=== PATIENT | female | born 1980 | race Caucasian/White ===

== ENCOUNTER 2017-11-04 10:42 | Emergency (ER) | payer BC ==
[2017-11-04 10:49] VITALS: BP 140/62
[2017-11-04] MEDS ORDERED: Famotidine 20 MG/2 ML SDV IVPUSH ONE (11:04)
[2017-11-04] MEDS ORDERED: Ondansetron 4 MG/2 ML SDV IVPUSH ONE (11:04)
[2017-11-04] MEDS ORDERED: Sodium Chloride 0.9% 10 ML Syringe FLUSH PRN (11:04)
[2017-11-04] MEDS ORDERED: Lactated Ringers 1,000 ML IV ONE (11:04)
[2017-11-04] MEDS ORDERED: Pantoprazole 40 MG Vial IVPUSH ONE (11:04)
--- NOTE | 2017-11-04 11:04 | EDM.PDOC ---
ED HPI GENERAL MEDICAL PROBLEM - General Chief Complaint: Abdominal Pain Stated Complaint: abdominal pain Time Seen by Provider: 11/04/17 10:50 Source of Information: Reports: Patient, Family (Mother, sister), Old Records ( [facility] chart/EMR) History Limitations: Reports: No Limitations - History of Present Illness INITIAL COMMENTS - FREE TEXT/NARRATIVE: The patient was brought to the emergency room via private automobile by her mother for evaluation of 06/17 diffuse abdominal pain, which suddenly started at work at about 10 AM this morning. Patient's last normal bowel movement was about 5 days ago with patient having about 6-7 loose stools per day during the last few days. She denies any known exposure to infection, food poisoning, etc. She has not taken any medications for the above symptoms to this point. The patient does have a history of recurrent urolithiasis as below, however does not feel that the symptoms are any way related to urolithiasis with no recent history of colic, gross hematuria, etc with only mild nausea since the above onset of symptoms this morning. Her LMP 2 weeks ago was normal. No recent history of abdominal pain, heartburn, melena, gross hematochezia, or any food intolerance, including fatty foods, etc.. The patient denies any chest pain/ pressure, heart flutter, dizziness, orthostasis, orthopnea, diaphoresis, paresthesias, recent decreased exercise tolerance, or any other anginal-type symptoms. The patient also denies any recent fever, cough, wheezing, dyspnea, etc., although she has had a mild sore throat during the last few days with this resolved at this time.. Onset: Today, Sudden Onset Date: 11/04/17 Onset Time: 10:00 Duration: Constant Location: Reports: Abdomen. Denies: Head, Face, Neck, Back, Pelvis, Upper Extremity, Left, Upper Extremity, Right, Radiates to Quality: Reports: Sharp. Denies: Same as Previous Episode Severity: Severe Improves with: Reports: None Worsens with: Reports: None Context: Reports: Other (As above) Associated Symptoms: Reports: Nausea/Vomiting (No emesis). 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 Denies: Allergic Rhinitis, Cataract, Glaucoma, Hard of Hearing, Impaired Vision, Macular Degeneration, Retinal Detachment Cardiovascular History: Reports: None. Denies: Afib, Aneurysm, Arrhythmia, Blood Clots/VTE/DVT, CAD, Heart Murmur, High Cholesterol, Hypertension, [place], PVD , Syncope Respiratory History: Reports: Intubation, Previous. Denies: Asthma, Bronchitis , Recurrent, COPD, PE, Pneumothorax, Sleep Apnea, TB Gastrointestinal History: Reports: Cholelithiasis, Other (See Below). Denies: Bowel Obstruction, Celiac Disease, Chronic Constipation, Chronic Diarrhea, Colon Polyp, Fecal Incontinence, Gastritis, GERD, GI Bleed, Hepatitis, Inflammatory Bowel Disease, Irritable Bowel Syndrome, Jaundice, Pancreatitis, PUD Other Gastrointestinal History: gallbladder polyp with concomitant cholelithiasis requiring surgery as below. Possible history of colitis in about 2014 with no workup to this point Genitourinary History: Reports: Renal Calculus, Other (See Below). 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 Denies: Ectopic , Endometriosis, Fibroids : 3 Para: 2 LMP (Approximate): 2 Weeks Other OB/BYN History: Note SAB of twins of possible different gestational ages- ? by ultrasound during first trimester in October 2009 with no procedures required. Otherwise, Full term without complications during pregnancies or deliveries. Fibrocystic breast disease Musculoskeletal History: Reports: Fracture, Other (See Below). Denies: Amputation, Arthritis, Back Pain, Chronic, Gout, Neck Pain, Chronic, Osteoarthritis, RA, SLE Other Musculoskeletal History: Left foot in 2009 Neurological History: Reports: None. Denies: Cerebral Aneurysms, Concussion, CVA, Headaches, Chronic, Head Trauma, Migraines, MS, Neuropathy, Peripheral, Parkinson's, Seizure, TIA Psychiatric History: Reports: None. Denies: Abuse, Victim of, ADD, ADHD, Addiction, Anxiety, Depression, Psych Hospitalization(s), PTSD, Suicide Attempt , Suicidal Ideation Endocrine/Metabolic History: Reports: Hypothyroidism, Obesity/BMI 30+. Denies: Diabetes, Gestational, Diabetes, Type I, Diabetes, Type II, Diabetes Mellitus, Type 3c, Osteopenia, Osteoporosis Hematologic History: Reports: None. Denies: Anemia, Blood Transfusion(s), Iron Deficiency Immunologic History: Reports: None. Denies: AIDS, HIV, SLE Oncologic (Cancer) History: Denies: Basal Cell Carcinoma, Cervix, Hodgkin's Lymphoma, Leukemia, Lymphoma, Malignant Melanoma, Non-Hodgkin's Lymphoma, Squamous Cell Carcinoma Dermatologic History: Reports: None. Denies: Eczema, Psoriasis - Infectious Disease History Infectious Disease History: Reports: Chicken Pox. Denies: C-Difficile, Measles , Meningitis, Mononucleosis, MRSA, Mumps, Pertussis (Whooping Cough), Rheumatic Fever, Rubella, Scarlet Fever, Shingles, VRE - Past Surgical History Head Surgeries/Procedures: Reports: None HEENT Surgical History: Reports: Oral Surgery, Other (See Below). Denies: Adenoidectomy, Cataract Surgery, Eye Surgery, Laser Surgery, LASIK, Myringotomy w Tube(s), Naso-Sinus Surgery, Tonsillectomy Other HEENT Surgeries/Procedures: [place] teeth extraction 4 at age 16. Tonsillectomy at age 31 Cardiovascular Surgical History: Reports: None. Denies: Varicose, Vascular Surgery Respiratory Surgical History: Reports: None. Denies: Thoracentesis GI Surgical History: Reports: Cholecystectomy, Other (See Below). Denies: Appendectomy, Colonoscopy, EGD, Hernia, Abdominal, Hernia, Inguinal, Hernia Repair/Other, Polypectomy Other GI Surgeries/Procedures: Laparoscopic cholecystectomy in January 2013 Female Surgical History: Reports: D&C, Other (See Below). Denies: Breast Biopsy, Tubal Ligation Other Female Surgeries/Procedures: D&C in June 2002 secondary to retained placenta Endocrine Surgical History: Reports: None. Denies: Thyroid Biopsy Neurological Surgical History: Reports: None. Denies: C-Spine, Discectomy, Laminectomy, Lumbar Spine, Sacral Spine, Scoliosis, Spinal Fusion, Vertebroplasty Musculoskeletal Surgical History: Reports: None. Denies: Arthroscopic Procedure , Carpal Tunnel, Ganglion Cyst, Joint Replacement, ORIF, Shoulder Surgery Oncologic Surgical History: Reports: None Dermatological Surgical History: Reports: Skin Biopsy, Other (See Below) Other Dermatological Surgeries/Procedures: Excision of benign cyst from the nuchal region at age 1 - Past Imaging History Past Imaging History: Reports: CAT Scan (CT scan of the abdomen and pelvis on ), Mammogram (Last mammogram on 01/06/17), Ultrasound (Right breast ultrasound on 01/06/17. Bilateral breast ultrasounds on 03/16/15. Right upper quadrant abdominal ultrasound on 11/14/12. Multiple previous OB ultrasounds.) Social & Family History - Family History Cardiac: Reports: CAD, High Cholesterol, Hypertension, [place], Other (See Below). Denies: Afib, Aneurysm, Arrhythmia, Blood Clots/VTE/DVT, Bypass, Heart Failure, PVD/COD, Stent, Syncope Other Cardiac Family History: Paternal grandfather with fatal [place] in his 80s. Maternal grandfather with fatal [place] in his 70s. Hypertension and hyperlipidemia in father GI: Reports: None. Denies: Celiac Disease, Cholelithiasis, Colon Polyps, GERD, GI bleed, Inflammatory Bowel Disease, Irritable Bowel Syndrome, PUD Endocrine/Metabolic: Reports: Hypothyroidism, Other (See Below). Denies: Diabetes, Type I, Diabetes, type II, Diabetes Mellitus, Type 3c Other Endocrine/Metabolic Family History: Sister and mother with hypothyroidism - Tobacco Use Smoking Status *Q: Never Smoker Smoking Cessation Information Provided To Patient: No Second Hand Smoke Exposure: No Second Hand Smoke Education Provided: No - Caffeine Use Caffeine Use: Reports: Soda (2 sodas per week), Tea (1 cup per day). Denies: Coffee, Energy Drinks - Alcohol Use Alcohol Use History: No Days Per Week of Alcohol Use: 0 (No previous DWIs, problems with alcohol abuse, etc.) Number of Drinks Per Day: 1 (Usually wine for special occasions only) Total Drinks Per Week: 0 Alcohol Use in Last Twelve Months: Yes Alcohol Use Frequency: Socially - Recreational Drug Use Recreational Drug Use: No Drug Use in Last 12 Months: No Recreational Drug Type: Denies: Amphetamines (Speed), Cocaine, Heroin, Inhalants (Glues, Solvents, Aerosols), LSD (Acid), Marijuana/Hashish, Methamphetamine, Morphine, Oxycodone - Living Situation & Occupation Living situation: Reports: (1999. 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 ED EXAM, GI/ABD - Physical Exam Exam: See Below Exam Limited By: No Limitations General Appearance: Alert, WD/WN, Mild Distress (Secondary to abdominal pain). No: Anxious Eyes: Bilateral: Normal Appearance (No nystagmus), EOMI (PERRLA) Ears: Normal External Exam, Normal Canal, Hearing Grossly Normal, Normal TMs Nose: Normal Inspection, Normal Mucosa, No Blood Throat/Mouth: Normal Inspection, Normal Lips, Normal Teeth, Normal Gums, Normal Voice, No Airway Compromise. No: Normal Oropharynx (Trace erythema in the posterior pharynx. Tonsils absent), Dysphagia, Perioral Cyanosis Head: Atraumatic, Normocephalic. No: Facial Swelling, Facial Tenderness, Sinus Tenderness Neck: Normal Inspection, Supple, Non-Tender, Full Range of Motion. No: Carotid Bruit, Lymphadenopathy (L), Lymphadenopathy (R), Thyromegaly Respiratory/Chest: No Respiratory Distress, Lungs Clear, Normal Breath Sounds, No Accessory Muscle Use, Chest Non-Tender. No: Pleural Rub, Retractions Cardiovascular: Normal Peripheral Pulses, Regular Rate, Rhythm, No Edema, No Gallop, No JVD, No Murmur, No Rub. No: Gallop/S3, Gallop/S4, Friction Rub GI/Abdominal Exam: Normal Bowel Sounds, No Organomegaly, No Distention, No Abnormal Bruit, No Mass, Pelvis Stable, Rebound (Borderline), Tender (Moderate diffuse particularly in right lower quadrant), Other (obese). No: Guarding (Female) Exam: Deferred Rectal (Female) Exam: Normal Exam, Normal Rectal Tone, Heme - Stool. No: Fecal Impaction, Hemorrhoids, Mass, Rectal Fissure, Tenderness (No Conrad space tenderness) Back Exam: Normal Inspection, Full Range of Motion. No: CVA Tenderness (L), CVA Tenderness (R), Muscle Spasm Extremities: Normal Inspection, Normal Range of Motion, Non-Tender, No Pedal Edema, Normal Capillary Refill. No: Audi's Sign Neurological: Alert, Oriented, CN II-XII Intact, Normal Cognition, Normal Gait, Normal Reflexes (Negative Babinski's), No Motor/Sensory Deficits Psychiatric: Normal Affect, Normal Mood Skin Exam: Warm, Dry, Intact, Normal Color, No Rash, Stud(s) (Multiple in the auricular regions bilaterally). No: Diaphoretic, Ecchymosis, Jaundice, Petechiae, Rash, Wound/Incision Lymphatic: No Adenopathy Course - Vital Signs Last Recorded V/S: Last Vital Signs Temp 36.6 C 11/04/17 10:42 Pulse 88 11/04/17 10:42 Resp 20 11/04/17 10:42 BP 140/62 11/04/17 10:42 Pulse Ox 100 11/04/17 10:42 Vital Signs - 24 hr 11/04/17 10:42 Temperature [ 36.6 C Temporal] Pulse, 88 Peripheral [ Right Pulse Oximetry] Respiratory 20 Rate Blood Pressure 140/62 [Right Upper Arm] O2 Sat by Pulse 100 Oximetry - Orders/Labs/Meds Orders: Active Orders 24 hr Category Date Time Status Peripheral IV Care [RC] . DIRECTED Care 11/04/17 11:05 Active Abdomen Pelvis w Cont [CT] Stat Exams 11/04/17 11:04 Taken CULTURE BLOOD [BC] Stat Lab 11/04/17 11:15 Received CULTURE BLOOD [BC] Stat Lab 11/04/17 11:20 Received CULTURE STREP A CONFIRMATION [RM] Stat Lab 11/04/17 11:10 Results CULTURE URINE [] Stat Lab 11/04/17 11:04 Ordered H PYLORI STOOL ANTIGEN [MREF] Urgent Lab 11/04/17 11:04 Ordered STREP SCRN A RAPID W CULT CONF [] Stat Lab 11/04/17 11:10 Results Blood Culture x2 Reflex Set [OM.PC] Urgent Oth 11/04/17 11:04 Ordered Obtain Past Medical Record [OM.PC] Urgent Oth 11/04/17 11:04 Active Peripheral IV Insertion Adult [OM.PC] Stat Oth 11/04/17 11:04 Ordered Resuscitation Status Stat Resus Stat 11/04/17 11:04 Ordered Labs: Laboratory Tests 11/04/17 11/04/17 11/04/17 Range/Units 11:11 11:15 11:15 WBC 6.8 (4.0-10.2) K/uL RBC 4.60 (3.77-5.09) M/uL Hgb 14.4 (11.7-15.5) g/dL Hct 41.0 (34.0-46.0) % MCV 89.1 (84.0-98.0) fL MCH 31.3 (28.2-33.3) pg MCHC 35.1 (31.7-36.0) g/dL RDW 12.2 (11.2-14.1) % Plt Count 199 (150-350) K/uL Neut % (Auto) 64.0 (45.0-80.0) % Lymph % (Auto) 26.0 (10.0-50.0) % [place] % (Auto) 9.3 (2.0-14.0) % Eos % (Auto) 0.7 (0.0-5.0) % Baso % (Auto) 0.0 (0.0-2.0) % Neut # (Auto) 4.35 (1.40-7.00) K/uL Lymph # (Auto) 1.77 (0.50-3.50) K/uL [place] # (Auto) 0.63 (0.00-1.00) K/uL Eos # (Auto) 0.05 (0.00-0.50) K/uL Baso # (Auto) 0.00 (0.00-0.20) K/uL PT (9.8-11.7) SEC INR APTT (22.1-29.8) SEC Sodium (136-145) mmol/L Potassium (3.5-5.1) mmol/L Chloride (98-107) mmol/L Carbon Dioxide (21.0-32.0) mmol/L BUN (7-18) mg/dL Creatinine (0.51-1.17) mg/dL Est Cr Clr Drug Dosing mL/min Estimated GFR (MDRD) mL/min Glucose (74-106) mg/dL Lactic Acid (0.4-2.0) mmol/L Uric Acid (2.6-7.2) mg/dL Calcium (8.5-10.1) mg/dL Magnesium (1.8-2.4) mg/dL Total Bilirubin (0.2-1.0) mg/dL AST (15-37) U/L ALT (12-78) U/L Alkaline Phosphatase (46-116) IU/L Total Protein (6.4-8.2) g/dL Albumin (3.4-5.0) g/dL Amylase 34 (25-115) U/L Lipase (73-393) U/L HCG, Qual Negative (NEGATIVE) Specimen Type Urine Color Urine Appearance Urine pH (5.0-9.0) Ur Specific [place] (1.005-1.030) Urine Protein (NEGATIVE) mg/dL Urine Glucose (UA) (NEGATIVE) mg/dL Urine Ketones (NEGATIVE) mg/dL Urine Occult Blood (NEGATIVE) Urine Nitrite (NEGATIVE) Urine Bilirubin (NEGATIVE) Urine Urobilinogen (0.2-1.0) E.U./dL Ur Leukocyte Esterase (NEGATIVE) Urine RBC /HPF Urine WBC /HPF Ur Epithelial Cells /LPF Urine Bacteria (NONE TO FEW) /HPF Urine Mucus (NEGATIVE) /LPF 11/04/17 11/04/17 11/04/17 Range/Units 11:15 11:15 11:15 WBC (4.0-10.2) K/uL RBC (3.77-5.09) M/uL Hgb (11.7-15.5) g/dL Hct (34.0-46.0) % MCV (84.0-98.0) fL MCH (28.2-33.3) pg MCHC (31.7-36.0) g/dL RDW (11.2-14.1) % Plt Count (150-350) K/uL Neut % (Auto) (45.0-80.0) % Lymph % (Auto) (10.0-50.0) % [place] % (Auto) (2.0-14.0) % Eos % (Auto) (0.0-5.0) % Baso % (Auto) (0.0-2.0) % Neut # (Auto) (1.40-7.00) K/uL Lymph # (Auto) (0.50-3.50) K/uL [place] # (Auto) (0.00-1.00) K/uL Eos # (Auto) (0.00-0.50) K/uL Baso # (Auto) (0.00-0.20) K/uL PT 10.5 (9.8-11.7) SEC INR 1.0 APTT 25.0 (22.1-29.8) SEC Sodium 139 (136-145) mmol/L Potassium 3.5 (3.5-5.1) mmol/L Chloride 103 (98-107) mmol/L Carbon Dioxide 25.0 (21.0-32.0) mmol/L BUN 9 (7-18) mg/dL Creatinine 0.76 (0.51-1.17) mg/dL Est Cr Clr Drug Dosing 90.31 mL/min Estimated GFR (MDRD) > 60 mL/min Glucose 91 (74-106) mg/dL Lactic Acid 1.1 (0.4-2.0) mmol/L Uric Acid 4.6 (2.6-7.2) mg/dL Calcium 9.3 (8.5-10.1) mg/dL Magnesium 1.9 (1.8-2.4) mg/dL Total Bilirubin 0.5 (0.2-1.0) mg/dL AST 14 L (15-37) U/L ALT 24 (12-78) U/L Alkaline Phosphatase 103 (46-116) IU/L Total Protein 7.5 (6.4-8.2) g/dL Albumin 4.0 (3.4-5.0) g/dL Amylase (25-115) U/L Lipase 96 (73-393) U/L HCG, Qual (NEGATIVE) Specimen Type Urine Color Urine Appearance Urine pH (5.0-9.0) Ur Specific [place] (1.005-1.030) Urine Protein (NEGATIVE) mg/dL Urine Glucose (UA) (NEGATIVE) mg/dL Urine Ketones (NEGATIVE) mg/dL Urine Occult Blood (NEGATIVE) Urine Nitrite (NEGATIVE) Urine Bilirubin (NEGATIVE) Urine Urobilinogen (0.2-1.0) E.U./dL Ur Leukocyte Esterase (NEGATIVE) Urine RBC /HPF Urine WBC /HPF Ur Epithelial Cells /LPF Urine Bacteria (NONE TO FEW) /HPF Urine Mucus (NEGATIVE) /LPF 11/04/17 Range/Units 12:35 WBC (4.0-10.2) K/uL RBC (3.77-5.09) M/uL Hgb (11.7-15.5) g/dL Hct (34.0-46.0) % MCV (84.0-98.0) fL MCH (28.2-33.3) pg MCHC (31.7-36.0) g/dL RDW (11.2-14.1) % Plt Count (150-350) K/uL Neut % (Auto) (45.0-80.0) % Lymph % (Auto) (10.0-50.0) % [place] % (Auto) (2.0-14.0) % Eos % (Auto) (0.0-5.0) % Baso % (Auto) (0.0-2.0) % Neut # (Auto) (1.40-7.00) K/uL Lymph # (Auto) (0.50-3.50) K/uL [place] # (Auto) (0.00-1.00) K/uL Eos # (Auto) (0.00-0.50) K/uL Baso # (Auto) (0.00-0.20) K/uL PT (9.8-11.7) SEC INR APTT (22.1-29.8) SEC Sodium (136-145) mmol/L Potassium (3.5-5.1) mmol/L Chloride (98-107) mmol/L Carbon Dioxide (21.0-32.0) mmol/L BUN (7-18) mg/dL Creatinine (0.51-1.17) mg/dL Est Cr Clr Drug Dosing mL/min Estimated GFR (MDRD) mL/min Glucose (74-106) mg/dL Lactic Acid (0.4-2.0) mmol/L Uric Acid (2.6-7.2) mg/dL Calcium (8.5-10.1) mg/dL Magnesium (1.8-2.4) mg/dL Total Bilirubin (0.2-1.0) mg/dL AST (15-37) U/L ALT (12-78) U/L Alkaline Phosphatase (46-116) IU/L Total Protein (6.4-8.2) g/dL Albumin (3.4-5.0) g/dL Amylase (25-115) U/L Lipase (73-393) U/L HCG, Qual (NEGATIVE) Specimen Type Urincc Urine Color Yellow Urine Appearance Clear Urine pH 6.0 (5.0-9.0) Ur Specific [place] 1.025 (1.005-1.030) Urine Protein Negative (NEGATIVE) mg/dL Urine Glucose (UA) Negative (NEGATIVE) mg/dL Urine Ketones 40 H (NEGATIVE) mg/dL Urine Occult Blood Negative (NEGATIVE) Urine Nitrite Negative (NEGATIVE) Urine Bilirubin Negative (NEGATIVE) Urine Urobilinogen 0.2 (0.2-1.0) E.U./dL Ur Leukocyte Esterase Negative (NEGATIVE) Urine RBC Not seen /HPF Urine WBC 0-5 /HPF Ur Epithelial Cells Few /LPF Urine Bacteria Moderate H (NONE TO FEW) /HPF Urine Mucus Few H (NEGATIVE) /LPF Blood cultures 2 collected Urine set up for culture and sensitivity Microbiology 11/04/17 11:34 Stool Occult Blood (ABDIRIZAK) - Final Stool / Feces NEGATIVE OCCULT BLOOD 11/04/17 11:10 Group A Streptococcus Rapid Screen - Final Throat NEGATIVE STREP A SCREEN Meds: Medications Discontinued Medications Generic Name Dose Route Start Last Admin Trade Name Freq PRN Reason Stop Dose Admin Famotidine 40 mg 11/04/17 11:04 11/04/17 11:12 Pepcid IVPUSH 11/04/17 11:05 40 mg ONETIME ONE Administration Fentanyl 100 mcg 11/04/17 11:25 11/04/17 11:27 Sublimaze IVPUSH 11/04/17 11:26 100 mcg ONETIME ONE Administration Ceftriaxone Sodium 1 gm/ 100 mls @ 200 mls/hr 11/04/17 11:15 11/04/17 11:22 Sodium Chloride IV 200 mls/hr Q12H ANA LUISA Administration Lactated Ringer's 1,000 mls @ 999 mls/hr 11/04/17 11:04 11/04/17 11:23 Ringers, Lactated IV 11/04/17 12:04 999 mls/hr .BOLUS ONE Administration Metronidazole 500 mg/ Premix 100 mls @ 100 mls/hr 11/04/17 11:15 11/04/17 11: 54 IV 100 mls/hr Q8H ANA LUISA Administration Iopamidol 100 ml 11/04/17 12:00 11/04/17 13:16 Isovue-300 (61%) IVPUSH 11/04/17 12:01 100 ml ONETIME ONE Administration Ondansetron HCl 4 mg 11/04/17 11:04 11/04/17 11:12 Zofran IVPUSH 11/04/17 11:05 4 mg ONETIME ONE Administration Pantoprazole Sodium 40 mg 11/04/17 11:04 11/04/17 11:12 Protonix Iv IVPUSH 11/04/17 11:05 40 mg ONETIME ONE Administration Sodium Chloride 10 ml 11/04/17 11:04 Saline Flush FLUSH ASDIRECTED PRN Keep Vein Open - Radiology Interpretation Free Text/Narrative:: Telephone consultation at 13:45 hours with the radiology department at [facility] with preliminary verbal report of CT scan of the abdomen and pelvis with both oral and IV contrast. Appendix appears normal. Ascending colon cannot be completely visualized, however possibility of mild colonic wall inflammation. No free air, abscess, etc. with completely normal appendix. Incidental 2 cm left ovarian corpus luteum cyst also noted. Incidental bilateral duplicated renal collection systems with no hydronephrosis, urolithiasis, etc. CT Results Date: 11/04/17 CT Results Time: 13:45 Departure - Departure Time of Disposition: 14:20 Disposition: Home, Self-Care 01 Condition: Good Clinical Impression: Hypothyroidism (acquired), Abdominal pain, Gastroenteritis, Colitis Urolithiasis Qualifiers: Urinary calculus location: other lower urinary tract location Qualified Code(s) : N21.8 - Other lower urinary tract calculus - Discharge Information Prescriptions: Ciprofloxacin HCl [Cipro] 500 mg PO BIDMEALS #20 tablet Fluconazole [Diflucan] 150 mg PO DAILY PRN #2 tablet PRN Reason: Itching metroNIDAZOLE [Flagyl] 500 mg PO Q8H #30 tab Instructions: Abdominal Pain, Adult, Viral Gastroenteritis, Adult, [id number] , Colitis Forms: ED Department Discharge, ED Return to Work/School Form Additional Instructions: 1. Followup with your regular provider in 10-14 days as directed with recommended repeat CBC, comprehensive metabolic panel, and acute abdominal x- rays. 2. Discuss at follow-up visit possibility of scheduling for colonoscopy secondary to history of recurrent colitis 3. [place] diet including encouragement of oral fluids such as sports drinks, etc. for 24-48 hours as directed. Advance to regular diet as tolerated thereafter. 4. Sedation precautions with no driving, etc. for 18 hours because of emergency room medications. 5. Tylenol 650 mg by mouth every 4 hours and/or OTC ibuprofen 2-3 tabs by mouth every 6 hours with food as directed./needed. 6. Work excuse- See Form - Problem List & Annotations (1) Abdominal pain SNOMED Code(s): 04203410 Code(s): R10.9 - UNSPECIFIED ABDOMINAL PAIN Status: Acute Annotation/ Comment:: Borderline peritonitis by initial clinical exam. IV Cipro and IV Flagyl therapy initiated immediately in the emergency room. 1 L bolus of IV lactated Ringer's also given. Note that high-dose IV Protonix and IV Pepcid were also given as GI prophylaxis. Apparent history of distant colitis in the past as above with no family history of ulcerative colitis, Crohn's disease, etc. Secondary to recurrent colitis, however, patient may benefit from colonoscopy after resolution of current symptoms. Discuss this further with her regular provider at follow-up visit as per discharge instructions. For the time being continue outpatient Cipro and Flagyl therapy. Work excuse provided. Note initial probable recent viral gastroenteritis as initiating factor for her colitis. Despite mild ketones in her urine no clinical evidence of significant dehydration. 1 L bolus of lactated Ringer's given IV in the emergency room as above. Prescription given for Diflucan also given per the patient's request secondary to history of recurrent vaginal moniliasis with antibiotics. (2) Colitis SNOMED Code(s): 90020016 Code(s): K52.9 - NONINFECTIVE GASTROENTERITIS AND COLITIS, UNSPECIFIED Status: Acute Priority: High Onset Date: 11/04/17 Annotation/Comment:: As above (3) Gastroenteritis SNOMED Code(s): 01933964 Code(s): K52.9 - NONINFECTIVE GASTROENTERITIS AND COLITIS, UNSPECIFIED Status: Acute Priority: Medium Onset Date: ~10/30/17 Annotation/Comment:: As above (4) Hypothyroidism (acquired) SNOMED Code(s): 004510467 Code(s): E03.9 - HYPOTHYROIDISM, UNSPECIFIED Status: Chronic Priority: Medium Annotation/Comment:: Currently under therapy with no recent thyroid type symptoms (5) Urolithiasis SNOMED Code(s): 47187132 Code(s): N20.9 - URINARY CALCULUS, UNSPECIFIED Status: Chronic Priority: Medium Annotation/Comment:: History of bilateral recurrent urolithiasis with no current colic, or other UTI symptoms by patient history as above. Note newly diagnosed incidental bilateral renal ureter collecting systems by CT scan as above. Qualifiers: Urinary calculus location: other lower urinary tract location Qualified Code(s): N21.8 - Other lower urinary tract calculus - Problem List Review Problem List Initiated/Reviewed/Updated: Yes - My Orders Last 24 Hours: My Active Orders 11/04/17 11:04 Abdomen Pelvis w Cont [CT] Stat CULTURE URINE [RM] Stat H PYLORI STOOL ANTIGEN [MREF] Urgent Blood Culture x2 Reflex Set [OM.PC] Urgent Obtain Past Medical Record [OM.PC] Urgent Peripheral IV Insertion Adult [OM.PC] Stat Resuscitation Status Stat 11/04/17 11:05 Peripheral IV Care [RC] . DIRECTED 11/04/17 11:10 CULTURE STREP A CONFIRMATION [RM] Stat STREP SCRN A RAPID W CULT CONF [RM] Stat 11/04/17 11:15 CULTURE BLOOD [BC] Stat 11/04/17 11:20 CULTURE BLOOD [BC] Stat - Assessment/Plan Last 24 Hours: My Active Orders 11/04/17 11:04 Abdomen Pelvis w Cont [CT] Stat CULTURE URINE [RM] Stat H PYLORI STOOL ANTIGEN [MREF] Urgent Blood Culture x2 Reflex Set [OM.PC] Urgent Obtain Past Medical Record [OM.PC] Urgent Peripheral IV Insertion Adult [OM.PC] Stat Resuscitation Status Stat 11/04/17 11:05 Peripheral IV Care [RC] . DIRECTED 11/04/17 11:10 CULTURE STREP A CONFIRMATION [RM] Stat STREP SCRN A RAPID W CULT CONF [RM] Stat 11/04/17 11:15 CULTURE BLOOD [BC] Stat 11/04/17 11:20 CULTURE BLOOD [BC] Stat Assessment:: As above Plan: As above. Extensive precautions were given to the patient and the patient's mother, who are in agreement with the treatment plan. See Patient Instructions for further treatment and plan.
[2017-11-04] MEDS ORDERED: cefTRIAXone 1 GM in Sodium Chloride 0.9% 100 ML IV SCH (11:15)
[2017-11-04] MEDS ORDERED: metroNIDAZOLE/Normal Saline 500 MG in Premix Bag 1 BAG IV SCH (11:15)
[2017-11-04] MEDS ORDERED: fentaNYL 100 MCG/2 ML SDV IVPUSH ONE (11:25)
[2017-11-04 11:47] LABS: CHLORIDE,CL 103 mmol/L (98-107); SODIUM,NA 139 mmol/L (136-145)
[2017-11-04] MEDS ORDERED: Iopamidol 612 MG/ML 100 ML Bottle IVPUSH ONE (12:00)
== END 2017-11-04 14:20 | disposition home or self-care (01) ==
LOC: LL.ED 10:42
DX: N20.9 Urinary calculus, unspecified (principal); K52.9 Noninfective gastroenteritis and colitis, unspecified; E03.9 Hypothyroidism, unspecified; Z88.5 Allergy status to narcotic agent; Z79.899 Other long term (current) drug therapy
CPT/HCPCS: 36415; 74177; 80053; 81001; 82150; 82272; 83605; 83690; 83735; 84550; 84703; 85025; 85610; 85730; 87040; 87081; 87430; 96361; 96365; 96375; 99284; C9113; J0696; J2405; J3010; J7050; J7120; Q9967; 87086; S0028

== ENCOUNTER → 2018-02-12 | Day surgery (SDC) | payer BC ==
[~2018-02-12] MED LIST: Midazolam 1 MG/ML 2 ML SDV ONE; Ondansetron 4 MG/2 ML SDV ONE; Propofol 200 MG/20 ML SDV ONE; Sodium Chloride 0.9% 10 ML Syringe FLUSH PRN; fentaNYL 100 MCG/2 ML SDV ONE
[2018-02-12] MEDS: Lactated Ringers 1,000 ML IV SCH (12:45)
--- NOTE | 2018-02-12 13:25 | PCM.PN ---
- General Info Date of Service: 02/12/18 - Review of Systems Systems Review Comment:: 37-year-old female referred for colonoscopy. She has had 2 severe episodes of colitis-like symptoms and does have chronic loose stools and GI upset. She is medically stable to proceed today with no recent significant change in her health status. I have discussed the proposed colonoscopy with the patient. Risks such as but not limited to bleeding and GI injury reviewed. She appears to understand and agrees to proceed. - Patient Data Vitals - Most Recent: Last Vital Signs Temp 98.9 F 02/12/18 12:27 Pulse 68 02/12/18 12:27 Resp 16 02/12/18 12:27 BP 118/80 02/12/18 12:27 Pulse Ox 97 02/12/18 12:27 Weight - Most Recent: 87.543 kg Med Orders - Current: Current Medications Lactated Ringer's (Ringers, Lactated) 1,000 mls @ 125 mls/hr IV ASDIRECTED ANA LUISA Last Admin: 02/12/18 12:45 Dose: 125 mls/hr Sodium Chloride (Saline Flush) 10 ml FLUSH ASDIRECTED PRN PRN Reason: Keep Vein Open - Problem List Review Problem List Initiated/Reviewed/Updated: Yes - Assessment Assessment:: change in bowel habits - Plan Plan:: colonoscopy
--- NOTE | 2018-02-12 14:13 | PCM.OPNOTE ---
- General Post-Op/Procedure Note Date of Surgery/Procedure: 02/12/18 Operative Procedure(s): Colonoscopy with Biopsy Findings: ormal-appearing colon and terminal ileum Pre Op Diagnosis: change in bowel habits Post-Op Diagnosis: normal colon Anesthesia Technique: MAC Primary Surgeon: Gadiel Taylor Pathology: iopsies of terminal ileum and left and right colon Output, Urine Amount: 0 EBL in mLs: 3 Complications: None Condition: Good
[2018-02-12 14:40] VITALS: BP 123/76
--- NOTE | 2018-02-12 18:21 | OR ---
Date of Procedure: 02/12/2018 PREOPERATIVE DIAGNOSIS: Change in bowel habits. POSTOPERATIVE DIAGNOSIS: Normal-appearing colon. OPERATION PERFORMED: Colonoscopy with biopsy. INDICATIONS FOR SURGERY: This 37-year-old female has had 2 episodes of severe abdominal pain and diarrhea. She also has persistent chronic diarrhea symptoms. Diagnostic colonoscopy is planned. FINDINGS: The patient's colon and rectum appeared normal. The mucosa appeared normal without visible lesion or visible signs of inflammation. The mucosa was of normal color. There were no hyperemia, ulcerations, or exudate. The terminal ileum also appeared normal. DESCRIPTION OF PROCEDURE: The patient was taken to the operating room. She was given intravenous sedation, and with her in the left lateral decubitus position, digital rectal exam was performed showing no rectal masses. The Olympus colonoscope was inserted into the rectum. Retroflexed examination of the rectal canal was performed. The scope was then carefully advanced under direct visualization through the entire length of the colon until the cecum was reached. Cecal acquisition was confirmed by noting the normal internal cecal anatomy including the appendiceal orifice and ileocecal valve. The light was also noted to transilluminate the abdominal wall in the right lower quadrant. The ileocecal valve was cannulated and the terminal ileum also examined. Random biopsies of the terminal ileum were taken to evaluate for possible celiac disease. The scope was then slowly withdrawn sequentially re-examining the colonic segments. Random biopsies of the right and left colon were taken because of the patient's history of diarrhea. After the exam had been completed and with no sign of any bleeding or other complication, the scope was removed and the patient was taken from the operating room in satisfactory condition. ESTIMATED BLOOD LOSS: 4 mL. COMPLICATIONS: None. PROGNOSIS: Good. LUCIA Taylor MD /[id number]
== END | disposition home or self-care (01) ==
LOC: LL.SDS 12:05
PROVIDERS: ATTEND Surgery
DX: R19.4 Change in bowel habit (principal); R19.7 Diarrhea, unspecified; R10.9 Unspecified abdominal pain; E03.9 Hypothyroidism, unspecified; Z79.899 Other long term (current) drug therapy; Z88.5 Allergy status to narcotic agent
CPT/HCPCS: J2250; J2405; J2704; J3010; J7120

== ENCOUNTER 2019-07-07 00:23 | Emergency (ER) | payer BC ==
[2019-07-07 00:29] VITALS: BP 139/92; PULSE 85
[2019-07-07 01:33] LABS: CHLORIDE,CL 106 mmol/L (98-107); SODIUM,NA 143 mmol/L (136-145)
--- NOTE | 2019-07-07 01:44 | EDM.PDOC ---
ED HPI GENERAL MEDICAL PROBLEM - General Chief Complaint: General Stated Complaint: shaking, dry mouth Time Seen by Provider: 07/07/19 00:39 Source of Information: Reports: Patient History Limitations: Reports: No Limitations - History of Present Illness INITIAL COMMENTS - FREE TEXT/NARRATIVE: Patient is a 38-year-old who was brought in by her secondary to not feeling well she states that her heart was beating extremely fast also was jittery and con mouth at this time medications were reviewed and symptoms were caused by hyper thyroid secondary to the fact that she is on thyroid medication her TSH was elevated as 6.169. Onset: Today, Sudden Duration: Hour(s):, Improving Location: Reports: Neck Severity: Moderate Improves with: Reports: None Worsens with: Reports: None Context: Reports: Activity Associated Symptoms: Reports: No Other Symptoms - Related Data Allergies Allergy/AdvReac Type Severity Reaction Status Date / Time hydrocodone Allergy Itching Verified 02/12/18 12:24 Home Meds: Home Meds Levothyroxine Sodium 25 mcg PO DAILY 07/21/14 [History] Chlorthalidone 25 mg PO DAILY 07/07/19 [History] Past Medical History HEENT History: Reports: None Cardiovascular History: Reports: None Respiratory History: Reports: Intubation, Previous Gastrointestinal History: Reports: Other (See Below) Other Gastrointestinal History: colitis Genitourinary History: Reports: Renal Calculus Other Genitourinary History: Recurrent bilateral urolithiasis with at least 8 previous episodes with last episode in about 2015 and no previous procedures required, i.e., spontaneous passage MEDICAL STAFFING COORDINATOR History: Reports: , Other (See Below) Other MEDICAL STAFFING COORDINATOR History: D+C, one misscarriage Musculoskeletal History: Reports: Fracture, Other (See Below) Other Musculoskeletal History: Left foot in 2009 Neurological History: Reports: None Psychiatric History: Reports: None Endocrine/Metabolic History: Reports: Hypothyroidism Hematologic History: Reports: Other (See Below) Other Hematologic History: hypokalemia Immunologic History: Reports: None Dermatologic History: Reports: None - Infectious Disease History Infectious Disease History: Reports: Chicken Pox, Influenza - Past Surgical History Head Surgeries/Procedures: Reports: None HEENT Surgical History: Reports: Adenoidectomy, Tonsillectomy Cardiovascular Surgical History: Reports: None Respiratory Surgical History: Reports: None GI Surgical History: Reports: Cholecystectomy Neurological Surgical History: Reports: None Musculoskeletal Surgical History: Reports: None Oncologic Surgical History: Reports: None Dermatological Surgical History: Reports: Skin Biopsy, Other (See Below) - Past Imaging History Past Imaging History: Reports: CAT Scan (CT scan of the abdomen and pelvis on ), Mammogram (Last mammogram on 01/06/17), Ultrasound (Right breast ultrasound on 01/06/17. Bilateral breast ultrasounds on 03/16/15. Right upper quadrant abdominal ultrasound on 11/14/12. Multiple previous OB ultrasounds.) Social & Family History - Family History Cardiac: Reports: CAD, High Cholesterol, Hypertension, CT, Other (See Below) Other Cardiac Family History: Paternal grandfather with fatal CT in his 80s. Maternal grandfather with fatal CT in his 70s. Hypertension and hyperlipidemia in father GI: Reports: None Endocrine/Metabolic: Reports: Hypothyroidism, Other (See Below) Other Endocrine/Metabolic Family History: Sister and mother with hypothyroidism - Tobacco Use Smoking Status *Q: Never Smoker Second Hand Smoke Exposure: No - Caffeine Use Caffeine Use: Reports: None - Recreational Drug Use Recreational Drug Use: No - Living Situation & Occupation Living situation: Reports: (1999. 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) ED ROS GENERAL - Review of Systems Review Of Systems: ROS reveals no pertinent complaints other than HPI. Constitutional: Reports: No Symptoms HEENT: Reports: No Symptoms Respiratory: Reports: No Symptoms Cardiovascular: Reports: No Symptoms Endocrine: Reports: No Symptoms GI/Abdominal: Reports: No Symptoms : Reports: No Symptoms Musculoskeletal: Reports: No Symptoms Skin: Reports: No Symptoms Neurological: Reports: No Symptoms Psychiatric: Reports: No Symptoms Hematologic/Lymphatic: Reports: No Symptoms Immunologic: Reports: No Symptoms ED EXAM, GENERAL - Physical Exam Exam: See Below Exam Limited By: No Limitations General Appearance: Alert, WD/WN, No Apparent Distress Ears: Normal External Exam, Normal Canal, Hearing Grossly Normal, Normal TMs Ear Exam: Bilateral Ear: Auricle Normal, Canal Normal, TM normal Nose: Normal Inspection, Normal Mucosa, No Blood Throat/Mouth: Normal Inspection, Normal Lips, Normal Teeth, Normal Gums, Normal Oropharynx, Normal Voice, No Airway Compromise Head: Atraumatic, Normocephalic Neck: Normal Inspection, Supple, Non-Tender, Full Range of Motion Respiratory/Chest: No Respiratory Distress, Lungs Clear, Normal Breath Sounds, No Accessory Muscle Use, Chest Non-Tender Cardiovascular: Normal Peripheral Pulses, Regular Rate, Rhythm, No Edema, No Gallop, No JVD, No Murmur, No Rub GI/Abdominal: Normal Bowel Sounds, Soft, Non-Tender, No Organomegaly, No Distention, No Abnormal Bruit, No Mass (Female) Exam: Normal External Exam, Normal Speculum Exam, Normal Bimanual Exam Rectal (Female) Exam: Normal Exam, Normal Rectal Tone Back Exam: Normal Inspection, Full Range of Motion, NT Extremities: Normal Inspection, Normal Range of Motion, Non-Tender, Normal Capillary Refill, No Pedal Edema Neurological: Alert, Oriented, CN II-XII Intact, Normal Cognition, Normal Gait, Normal Reflexes, No Motor/Sensory Deficits Psychiatric: Normal Affect, Normal Mood Skin Exam: Warm, Dry, Intact, Normal Color, No Rash Lymphatic: No Adenopathy Course - Vital Signs Last Recorded V/S: Last Vital Signs Temp 98.2 F 07/07/19 00:24 Pulse 85 07/07/19 00:24 Resp 20 07/07/19 00:24 BP 139/92 H 07/07/19 00:24 Pulse Ox 100 07/07/19 00:24 Departure - Departure Time of Disposition: 01:51 Disposition: Home, Self-Care 01 Condition: Good Clinical Impression: Secondary hyperthyroidism - Discharge Information *PRESCRIPTION DRUG MONITORING PROGRAM REVIEWED*: No *COPY OF PRESCRIPTION DRUG MONITORING REPORT IN PATIENT SIRISHA: No Additional Instructions: At this time we'll stop her thyroid medication and repeat T4 levels.
== END 2019-07-07 01:59 | disposition home or self-care (01) ==
LOC: LL.ED 00:23
DX: E05.80 Other thyrotoxicosis without thyrotoxic crisis or storm (principal); E03.9 Hypothyroidism, unspecified; Z88.5 Allergy status to narcotic agent; Z79.890 Hormone replacement therapy
CPT/HCPCS: 36415; 71046; 80053; 81001; 83735; 84439; 84443; 85025; 99283-25

== ENCOUNTER → 2022-06-20 | Emergency (ER) | payer OTHER | LOC: LL.ED 10:55 | DX: R10.83 Colic (principal) | CPT/HCPCS: 96372; 99283 ==